=== PATIENT | male | born 1945 | race Caucasian/White ===

== ENCOUNTER → 2018-06-01 | Outpatient (CLI) | payer OTHER ==
[2018-06-01 13:49] VITALS: BP 139/77
--- NOTE | 2018-06-11 12:54 | LINQ ---
[facility] [address] [place] [address] [employer] PROCEDURE REPORT Name: NIKIAYANA Judd Room #: REG [facility]#: [id number] ������������� Admission: 06/01/18 ������������� Attend Phys: Bryon Berrios Discharge: ��� ������������� ��� Date of : 47 Date of Service: 06/11/18 1253 �� Report #: [id number] �������� ��������������������������������������������[id number] THIS REPORT FOR: //name// APPROVED REPORT Study performed: 06/01/2018 16:39:59 Patient Status: Out-Patient Room #: Event Personnel: Bryon Hammer MD Exam: Loop Recorder Implant Indications: Syncope Implanted Devices: [facility]: Confirm Rx; Model #:[id number]; SN: [id number]; Expiration: 2019-05-08 Procedure The patient underwent informed consent. We discussed the details of the procedure including the risks, which include, but not limited to bleeding, infection, vascular damage, cardiac perforation, and pneumothorax. The patient was brought to the cardiac catheterization prep and hold and after informed consent was obtained the left chest was prepped in the usual sterile manner. Utilizing 1% lidocaine the proposed incision and pocket location was anesthetized. Utilizing an 11 blade a small incision was made and using Visine blunt dissection a pocket was developed. Subsequent to this the enclosed deployment device was utilized to deploy the device in place. [employer] was verified with excellent results. The saphenous tissue was then closed with 2 simple interrupted sutures. The skin was closed with a absorbable 3-year-old surrounding subcuticular suture. Steri-Strips 4 x 4 OpSite were utilized. Patient tolerated procedure well there were no complications Conclusion 1. Successful implantation of a [facility] implantable loop recorder Recommendations 1. Routine post insertion protocol ��������������������������������������������� <ELECTRONICALLY SIGNED> ���������������������������������������� By: Bryon Hammer MD ��������������������������������������������� 06/11/18 1253 1253 1253 Bryon Hammer MD /INF
== END | disposition home or self-care (01) ==
LOC: CATH 05-02 08:18
DX: R55 Syncope and collapse (principal)

== ENCOUNTER → 2019-10-18 | Outpatient (CLI) | payer OTHER | LOC: SJCVCIMAG 08:17 | PROVIDERS: ATTEND Internal Medicine | DX: I08.8 Other rheumatic multiple valve diseases (principal); I48.0 Paroxysmal atrial fibrillation; I10 Essential (primary) hypertension; R00.1 Bradycardia, unspecified ==

== ENCOUNTER → 2019-11-12 | Outpatient (CLI) | payer OTHER | LOC: SJCVC 10:28 | PROVIDERS: ATTEND Internal Medicine Cardiovascular Disease | DX: I48.0 Paroxysmal atrial fibrillation (principal); I44.0 Atrioventricular block, first degree; R00.1 Bradycardia, unspecified; I10 Essential (primary) hypertension; E78.5 Hyperlipidemia, unspecified; Z79.899 Other long term (current) drug therapy ==

== ENCOUNTER → 2019-12-27 | Outpatient (CLI) | payer OTHER ==
[~2019-12-27] MED LIST: ADVIL MIGRAINE200 M1 PO; PRADAXA150 MG PO; VERAPAMIL ER120 MG PO
[2019-12-27 09:44] LABS: ABSOLUTE NEUTROPHILS 3.1 thou/uL (1.4-8.2); BASOPHILS 1.2 % (0.0-2.0); EOSINOPHILS 1.5 % (0.0-3.0); HEMOGLOBIN 13.5 gm/dL (14.0-18.0); LYMPHOCYTES 33.9 % (24.0-44.0); MCH 31.1 pg (26.0-34.0); MCHC 33.8 g/dL (28.0-37.0); MCV 91.9 fL (80.0-100.0); MONOCYTES 10.7 % (1.0-8.0); PLATELET COUNT 268 thou/uL (150-400); POLYS 52.7 % (36.0-66.0); RBC 4.36 mil/uL (4.50-6.00); RDW 13.6 % (10.5-14.5); WBC 5.9 thou/uL (4.0-11.0)
[2019-12-27 09:58] LABS: ALBUMIN 3.8 g/dL (3.4-5.0); CALCIUM 8.7 mg/dL (8.5-10.1); CREATININE 1.1 mg/dL (0.7-1.3); POTASSIUM 4.5 mmol/L (3.5-5.1); TOTAL BILIRUBIN 1.3 mg/dL (0.2-1.0); TOTAL PROTEIN 7.6 g/dL (6.4-8.2)
== END ==
LOC: CAT 09:13
PROVIDERS: ATTEND Internal Medicine Cardiovascular Disease
DX: Z01.818 Encounter for other preprocedural examination (principal); K86.89 Other specified diseases of pancreas; K76.89 Other specified diseases of liver; N28.1 Cyst of kidney, acquired; I25.10 Atherosclerotic heart disease of native coronary artery without angina pectoris; I48.91 Unspecified atrial fibrillation

== ENCOUNTER → 2019-12-31 | Outpatient (CLI) | payer OTHER ==
[~2019-12-31] VITALS: Ht 190.5 cm; Wt 84.4 kg
[2019-12-31 07:20] VITALS: BP 147/74
--- NOTE | 2019-12-31 08:28 | TEE ---
[facility] [address] [place] [address] TRANSESOPHAGEAL ECHOCARDIOGRAM Name: AYANA PRINCE Room #: REG [facility]#: [id number] Admission: 12/31/19 Attend Phys: Jesus Colunga MD, Discharge: Date of : 47 Report #: [id number] THIS REPORT FOR: cc: Dhiraj Benitez Alan Z. DO Santiago, Patrick MD [facility] ~ APPROVED REPORT Study performed: 12/31/2019 07:30:37 EXAM: Comprehensive 2D, Doppler, and color-flow Echocardiogram Patient Location: Out-Patient Status: routine BSA: 2.14 HR: 60 bpm BP: 147/84 mmHg Rhythm: NSR Other Information Study Quality: Good Indications Atrial Fibrillation Pre-Ablation Tricuspid Valve TR Peak Samuel.: 2.52 m/s TR Peak Gr.: 25.35 mmHg Procedure After obtaining informed consent, patient underwent transesophageal echo in the [employer]. Type of Sedation : Conscious Sedation Sedation was administered by JESUS Meléndez. Sedation was achieved intravenously with: Versed (3) Fentanyl (100) Transesophageal probe was inserted and advanced into esophagus without difficulty by Jesus Colunga MD [facility]. Echo enhancement indication: R/O Septal defect. Echo enhancement agent administered: Agitated Saline The MOSHE was performed without complications. Throughout the procedure, the blood pressure, pulse oximetry, cardiac rhythm, and rate were monitored. [facility] [address] [place] [address] TRANSESOPHAGEAL ECHOCARDIOGRAM Name: AYANA PRINCE Room #: REG CL [facility]#: [id number] Admission: 12/31/19 Attend Phys: Jesus Colunga, Discharge: Date of : 47 Report #: [id number] The patient tolerated the procedure without adverse effects. Recovery from conscious sedation was uneventful and vital signs were stable. Left Ventricle The left ventricle is normal size. There is normal LV segmental wall motion. There is normal left ventricular wall thickness. Left ventricular systolic function is normal. LVEF is 55-60%. Right Ventricle The right ventricle is normal size. The right ventricular systolic function is normal. Atria Left atrium is mildly dilated. No thrombus is visualized in the left atrium or appendage. No shunting noted with contrast bubble injection. The right atrium size is normal. Aortic Valve The aortic valve is normal in structure. Mild aortic regurgitation. There is no aortic valvular stenosis. Mitral Valve The mitral valve is normal in structure. Mild mitral regurgitation. No evidence of mitral valve stenosis. Tricuspid Valve The tricuspid valve is normal in structure. Mild pulmonary hypertension. Pulmonic Valve The pulmonary valve is normal in structure. Great Vessels The aortic root is normal in size. Minimal plaque noted in the descending aorta. Pericardium There is no pericardial effusion. <Conclusion> Consent was obtained Timeout was performed Esophageal probe was advanced without any difficulty Normal left ventricular size, wall thickness and systolic function [facility] [address] [place] [address] TRANSESOPHAGEAL ECHOCARDIOGRAM Name: NIKIAYANA Judd Room #: REG CL [facility].#: [id number] Admission: 12/31/19 Attend Phys: Jesus Colunga, Discharge: Date of : 47 Report #: [id number] Ejection fraction of 60% Left atrial appendage, normal size, no mass or clot detected Mild biatrial enlargement No evidence of atrial/ventricular septal defect by color-flow Doppler study Tricuspid aortic valve Mild aortic/mitral valve insufficiency Mild tricuspid valve insufficiency PA pressure systolic estimated at 25 mmHg Aorta, minimal calcification No pericardial effusion <ELECTRONICALLY SIGNED> By: Jesus Colunga MD, FACC 12/31/19827 7 7 Jesus Colunga MD, FACC /INF
[2020-01-01 07:30] LABS: BASOPHILS 0.8 % (0.0-2.0); EOSINOPHILS 1.9 % (0.0-3.0); HEMATOCRIT 38.7 % (42.0-52.0); HEMOGLOBIN 13.1 gm/dL (14.0-18.0); LYMPHOCYTES 36.6 % (24.0-44.0); MCHC 33.9 g/dL (28.0-37.0); MCV 91.5 fL (80.0-100.0); MONOCYTES 10.8 % (1.0-8.0); PLATELET COUNT 246 thou/uL (150-400); POLYS 49.9 % (36.0-66.0); RBC 4.23 mil/uL (4.50-6.00); RDW 13.5 % (10.5-14.5)
[2020-01-01 07:34] LABS: CALCIUM 8.3 mg/dL (8.5-10.1); CREATININE 1.2 mg/dL (0.7-1.3); POTASSIUM 3.7 mmol/L (3.5-5.1)
[2020-01-01 07:39] LABS: ALBUMIN 3.7 g/dL (3.4-5.0); TOTAL BILIRUBIN 0.5 mg/dL (0.2-1.0); TOTAL PROTEIN 7.2 g/dL (6.4-8.2)
[2020-01-01 07:52] LABS: APTT 26.4 Seconds (24.5-32.8); PROTIME 10.7 Seconds (9.3-11.4)
== END | disposition home or self-care (01) ==
LOC: CATH
PROVIDERS: Internal Medicine Cardiovascular Disease; ATTEND Internal Medicine
DX: I48.91 Unspecified atrial fibrillation (principal)

== ENCOUNTER 2020-01-01 06:32 | Observation (INO) | payer OTHER ==
[~2020-01-01] VITALS: Ht 190.5 cm; Wt 87.1 kg
[2020-01-01] VITALS (11 sets, daily range): BP systolic 123–171; BP diastolic 66–85
[~2020-01-01 06:32] MED LIST changes: -ADVIL MIGRAINE200 M1 PO; -PRADAXA150 MG PO
[2020-01-01] MEDS ORDERED: ADVIL MIGRAINE200 M1 PO (07:34)
--- NOTE | 2020-01-01 17:46 | NUR ---
PT ADMITED FROM [facility]. ADMISSION HX AND ASSESSMENT COMPLETED. VSS. DENIED HAVING PAIN OR DISCOMFORT. RIGHT GROIN INCISION C/D/I. NO HEMATOMA NOTED. SR ON TELE. NO CONCERNS AT THIS TIME.
[2020-01-02 00:25] VITALS: BP 132/65
[2020-01-02 00:30] VITALS: BP 132/65
[2020-01-02 04:45] VITALS: BP 134/63
[2020-01-02] MEDS ORDERED: PRADAXA150 MG PO (07:28)
[2020-01-02 08:00] VITALS: BP 143/71
--- NOTE | 2020-01-02 08:00 | NUR ---
SLEPT PART OF SHIFT. UP AD DIA WITHOUT PROBLEMS. RIGHT GROIN, NO HEMATOMA,BLEEDING AND DSG D/I. DENIES PAIN. WORKING ON GOALS AND PLAN OF CARE FOR NOC. PROGRESSING SLOWLY. CONTINUE TO ASSES CLOSELY.
[2020-01-02 10:39] VITALS: BP 143/71
--- NOTE | 2020-01-02 10:56 | NUR ---
ASSUMED CARE OF PATIENT AT 0700; AOX4/VSS/ASSESSMENTS CHARTED; PATIENT WAS GIVEN DISCHARGE PAPERWORK AND EDUCATED ON MAINTAINING GROIN SITE/DOCUMENTS WERE SIGNED AND GROIN SITE C/D/I; PERIPHERAL IV REMOVED AND LEADS AND MONITOR REMOVED; PATIENT ESCORTED OFF UNIT IN WHEELCHAIR BY NURSING STAFF
--- NOTE | 2020-01-03 12:05 | P ---
[facility] [place] [address] [place] [address] PROCEDURE REPORT Name: AYANA PRINCE Room #: 215-P [facility] M[facility]ela.#: [id number] Admission: 01/01/20 Attend Phys: Vikram Moses MD Discharge: 01/02/20 Date of : 47 Report #: [id number] THIS REPORT FOR: cc: Dhiraj Benitez Alan Z. DO Couchonnal, Luis F. MD ~ CC: Dhiraj Moses PREOPERATIVE DIAGNOSIS: Atrial fibrillation. POSTOPERATIVE DIAGNOSIS: Atrial fibrillation. PROCEDURES PERFORMED: 1. Atrial fibrillation ablation, CPT code 71904. 2. Program stimulation pacing after IV drug infusion, CPT code 14291. 3. 3D mapping, CPT code 50261. 4. Intracardiac echo, CPT code 27572. HISTORY: The patient is a 74-year-old with history of recurrent atrial fibrillation, here for ablation. ANESTHESIA: The patient underwent general anesthesia with no anesthesia related complications. DESCRIPTION OF PROCEDURE: The patient underwent informed consent. We discussed the details of the procedure including the risks, which include but not limited to bleeding, vascular damage, stroke, MA as well as cardiac perforation. He understood these risks and is willing to proceed. The patient was brought to EP laboratory in fasting and sedated state, prepped and draped in a sterile fashion. I obtained access to the right femoral vein x 3, placing 8, 9 and 7-Andorran short sheath using the modified Seldinger technique and under fluoroscopy, I placed a decapolar catheter easily in the coronary sinus and an ICE catheter in the right atrium. Using intracardiac ultrasound, there was evidence of 2 left and 2 right pulmonary veins. The patient did have somewhat of a rotated atrium and it was very flat in nature. Next, the patient was prepped for transseptal using an SL1 sheath and a [place] needle, a transseptal was performed after the patient was systemically heparinized. This was straightforward and I exchanged SL1 sheath for the cryo sheath and placed a Lasso catheter in the left atrium. I created a detailed 3D voltage map of the left atrium and then I placed the cryoballoon into the left atrium. The left superior pulmonary vein underwent a single 4-minute freeze as this vein isolated within 48 seconds. The left inferior pulmonary vein underwent a 3-minute, followed by a 4-minute freeze and the vein isolated during the second freeze within 40 seconds. The right superior pulmonary vein [address] [address] PROCEDURE REPORT Name: AYANA PRINCE Room #: 215-P [facility] Enmanuel Reis#: [id number] Admission: 01/01/20 Attend Phys: Vikram Moses MD Discharge: 01/02/20 Date of : 47 Report #: [id number] underwent a single 3-minute freeze as this vein isolated within 51 seconds. The right inferior pulmonary vein was slightly more challenging, underwent an initial 180-second freeze with poor temps. I then performed a 60 and 90-second freeze, but due to poor temps I came off early. I then performed a formal venogram, which showed that there was an inferior leak and I performed a 4-minute freeze, which resulted in isolation of the vein. I performed an additional 4-minute freeze at this location as well to ensure that this vein remained isolated. A repeat voltage map was created showing that all 4 pulmonary veins were isolated. Next, a basic EP study was performed. Atrial burst pacing was performed and AV block was noted at 410 milliseconds. AV london ERP was noted at 420 milliseconds at [address] cycle length. Isoproterenol infusion was initiated at 1 mcg per minute and AV block was noted at 320 milliseconds. Atrial ERP was noted at 240 milliseconds at [address] cycle length and aggressive atrial burst pacing was performed and no atrial fibrillation was induced. Using intracardiac ultrasound, I verified there was no pericardial effusion. The patient received systemic protamine and once ACT was in acceptable range, catheters and sheaths were pulled. Hemostasis was obtained. A cojsot-lx-zktwk suture was deployed to the right groin region. CONCLUSIONS: 1. Successful AFib ablation with isolation of the pulmonary veins. 2. Normal EP study with no other inducible arrhythmias on or off isoproterenol. <ELECTRONICALLY SIGNED> By: Vikram Moses MD 01/03/20 1205 0855 0142 Vikram Moses MD /nt
== END 2020-01-02 11:12 | disposition home or self-care (01) ==
LOC: CATH 06:32 → 2N 13:19 → CATH 13:58 → 2N 01-02 11:12
PROVIDERS: ADMIT Internal Medicine Cardiovascular Disease; ATTEND Internal Medicine Cardiovascular Disease
DX: I48.91 Unspecified atrial fibrillation (principal); I49.5 Sick sinus syndrome; E78.5 Hyperlipidemia, unspecified; E03.9 Hypothyroidism, unspecified; I10 Essential (primary) hypertension; R55 Syncope and collapse; Z79.899 Other long term (current) drug therapy
CPT/HCPCS: 62110; 62900; 65020; 65040; 70005

== ENCOUNTER → 2020-04-15 | Outpatient (CLI) | payer OTHER ==
[~2020-04-15] MED LIST changes: +ADVIL MIGRAINE200 M1 PO; +PRADAXA150 MG PO
== END ==
LOC: SJCVC 14:05
PROVIDERS: ATTEND Internal Medicine
DX: R94.31 Abnormal electrocardiogram [ECG] [EKG] (principal); I48.0 Paroxysmal atrial fibrillation; I10 Essential (primary) hypertension; E78.5 Hyperlipidemia, unspecified; R55 Syncope and collapse; E03.9 Hypothyroidism, unspecified; Z88.1 Allergy status to other antibiotic agents; Z79.899 Other long term (current) drug therapy; Z98.890 Other specified postprocedural states

== ENCOUNTER → 2020-07-16 | Outpatient (CLI) | payer OTHER | LOC: CAT 07-09 09:51 → LAB 11:28 | PROVIDERS: ATTEND Internal Medicine Gastroenterology | DX: K57.30 Diverticulosis of large intestine without perforation or abscess without bleeding (principal); M47.817 Spondylosis without myelopathy or radiculopathy, lumbosacral region; M43.17 Spondylolisthesis, lumbosacral region; Q45.2 Congenital pancreatic cyst ==

== ENCOUNTER → 2020-07-16 | Outpatient (CLI) | payer OTHER | LOC: SJCVC 15:50 | PROVIDERS: ATTEND Internal Medicine Cardiovascular Disease | DX: I48.0 Paroxysmal atrial fibrillation (principal); R94.31 Abnormal electrocardiogram [ECG] [EKG]; I10 Essential (primary) hypertension; E78.5 Hyperlipidemia, unspecified; E03.9 Hypothyroidism, unspecified; I49.5 Sick sinus syndrome; Z88.8 Allergy status to other drugs, medicaments and biological substances; Z79.899 Other long term (current) drug therapy ==

== ENCOUNTER → 2020-10-23 | Outpatient (CLI) | payer OTHER ==
[2020-10-23 10:19] VITALS: BP 124/69
--- NOTE | 2020-10-28 16:51 | CATHLAB ---
[facility] [place] [place] [address] [place] [address] INVASIVE PROCEDURE REPORT Name: AYANA PRINCE Room #: REG KANE Reis#: [id number] Admission: 10/23/20 Attend Phys: Bryon Hammer Discharge: Date of : 47 Report #: [id number] THIS REPORT FOR: cc: Dhiraj Benitez Alan Z. DO Lammoglia, Francisco J. MD ~ APPROVED REPORT Patient Location: Out-Patient Room #: Stress Nurse: Procedure: Implantable loop recorder explant Indications: 75-year-old male with implantable loop recorder at end-of-life and pain at the site Brief description of procedure: After informed consent was obtained the patient was brought to the cardiac x-rays and laboratory prepped and hold. The left chest was prepped and draped in usual sterile manner. Utilizing 1% lidocaine the area along the old incision was anesthetized as well as the area surrounding the device. Using 11 blade a small incision was made. Using both sharp and blunt dissection the device was then grasped and delivered from the pocket without complications. Subcutaneous tissue and pocket was obliterated with pbmrkc-px-dofgv stitch. Skin was closed with Dermabond, Steri-Strips, 4 x 4 and OpSite. Patient tolerated procedure well there were no complication Conclusion 1. Successful explantation of a implantable loop recorder <ELECTRONICALLY SIGNED> By: Bryon Hammer MD 10/28/201649 49 49 Bryon Hammer MD /INF
== END | disposition home or self-care (01) ==
LOC: CATH 09:03
PROVIDERS: ATTEND Internal Medicine
DX: Z45.09 Encounter for adjustment and management of other cardiac device (principal); I48.91 Unspecified atrial fibrillation; Z79.899 Other long term (current) drug therapy; Z88.8 Allergy status to other drugs, medicaments and biological substances

== ENCOUNTER → 2021-01-19 | Outpatient (CLI) | payer OTHER | LOC: SJCVC 10:05 | PROVIDERS: ATTEND Internal Medicine Cardiovascular Disease | DX: R94.31 Abnormal electrocardiogram [ECG] [EKG] (principal); I44.0 Atrioventricular block, first degree; I48.0 Paroxysmal atrial fibrillation; I10 Essential (primary) hypertension; E78.5 Hyperlipidemia, unspecified; Z79.899 Other long term (current) drug therapy; Z88.8 Allergy status to other drugs, medicaments and biological substances ==